=== PATIENT | male | born 2000 | race Caucasian/White ===

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

== ENCOUNTER 2019-09-15 11:26 | Emergency (ER) | payer BC ==
[2019-09-15 11:50] VITALS: BP 133/48
--- NOTE | 2019-09-15 12:10 | UC ---
Throat Pain/Nasal Iftikhar HPI - HPI Summary HPI Summary: 19-year-old male whose had cold symptoms over the past 2 days and a sore throat. He states since yesterday he's had red eyes with some crusty drainage in both eyes this morning. - History of Current Complaint Chief Complaint: UCGeneralIllness Stated Complaint: ST,CONGESTION,BILATERAL EYE COMPLAINT Time Seen by Provider: 09/15/19 12:08 Hx Obtained From: Patient Onset/Duration: Gradual Onset Severity: Mild Pain Intensity: 5 Cough: None Associated Signs & Symptoms: Positive: Nasal Discharge - Allergies/Home Medications Allergies/Adverse Reactions: Allergies Allergy/AdvReac Type Severity Reaction Status Date / Time No Known Allergies Allergy Verified 09/15/19 11:50 PMH/Surg Hx/FS Hx/Imm Hx Previously Healthy: Yes - Surgical History Surgical History: Yes Surgery Procedure, Year, and Place: nasal 09/2018 - Family History Known Family History: Negative: Diabetes - Social History Occupation: Student Lives: Dormitory/Roommates Alcohol Use: Occasionally Substance Use Type: None Smoking Status (MU): Never Smoked Tobacco Review of Systems All Other Systems Reviewed And Are Negative: Yes Eyes: Positive: Drainage - Patient had some yellow crusty drainage from both eyes is morning., Eye Redness - Both eyes are red since yesterday. ENT: Positive: Sore Throat - Sore throat over the past couple of days. Is Patient Immunocompromised?: No Physical Exam Triage Information Reviewed: Yes Appearance: Well-Appearing, No Pain Distress, Well-Nourished Vital Signs: Initial Vital Signs Temp 98.7 F 09/15/19 11:44 Pulse 64 09/15/19 11:44 Resp 16 09/15/19 11:44 BP 133/48 09/15/19 11:44 Pulse Ox 100 09/15/19 11:44 Vital Signs Reviewed: Yes Eyes: Positive: Conjunctiva Inflamed, Other: - No drainage at this point time ENT: Positive: Pharyngeal erythema - Mild tonsillar erythema., Nasal drainage - Clear nasal coryza., TMs normal, Uvula midline. Negative: Tonsillar swelling, Tonsillar exudate, Trismus, Muffled voice, Hoarse voice Neck: Positive: Supple, Nontender, No Lymphadenopathy Respiratory: Positive: Lungs clear, Normal breath sounds, No respiratory distress, No accessory muscle use Cardiovascular: Positive: RRR, No Murmur, Pulses Normal, Brisk Capillary Refill Abdomen Description: Positive: Nontender, No Organomegaly, Soft. Negative: CVA Tenderness (R), CVA Tenderness (L), Distended, Guarding, Hepatomegaly, McBurney' s Point Tenderness, Splenomegaly Bowel Sounds: Positive: Present Musculoskeletal Exam: Normal Neurological Exam: Normal Psychological Exam: Normal Skin Exam: Normal Throat Pain/Nasal Course/Dx - Course Course Of Treatment: I advised the patient this may be a viral conjunctivitis and he does not need the antibiotic drops however he requests them because he has an interview on Tuesday and if it is bacterial conjunctivitis he would like that cleared up by Tuesday. He is to follow-up with an pack worker supervisor if no improvement in 3 or 4 days. Rapid strep test was negative. He is to follow-up with the [facility] if no improvement with the sore throat in 3 or 4 days. - Differential Dx/Diagnosis Provider Diagnosis: Conjunctivitis, Pharyngitis Discharge ED - Sign-Out/Discharge Documenting (check all that apply): Patient Departure All imaging exams completed and their final reports reviewed: No Studies - Discharge Plan Condition: Good Disposition: HOME Prescriptions: Tobramycin 0.3% OPHTH.NEENA* 1 drop BOTH EYES Q4H 7 Days #1 btl Patient Education Materials: Conjunctivitis (ED), Pharyngitis (ED) Referrals: No Primary Care Phys,NOPCP [Primary Care Provider] - CATALINA MAIER [Z.BUSINESS, APPLICATION, OTHER] - Additional Instructions: Increase fluids, good handwashing. Warm saltwater gargles, throat lozenges. You can start the antibiotic eyedrops however this is more than likely a viral conjunctivitis but if no improvement in 3 or 4 days follow-up with an pack worker supervisor if you're cold symptoms or sore throat do not resolve then follow-up at the [facility]. - Billing Disposition and Condition Condition: GOOD Disposition: Home
== END 2019-09-15 12:31 | disposition home or self-care (01) ==
LOC: UCCORT 11:26
DX: J02.9 Acute pharyngitis, unspecified (principal); H10.9 Unspecified conjunctivitis
CPT/HCPCS: 87651; 99212; G0463